=== PATIENT | female | born 1965 | race Caucasian/White ===

== ENCOUNTER → 2018-12-07 | Outpatient (CLI) | payer OTHER ==
--- NOTE | 2018-12-08 09:20 | MM ---
Reason for exam: additional evaluation requested from abnormal screening. Last mammogram was performed 1 month ago. History: Benign cyst aspiration of the right breast, 1999. Physical Findings: Nurse did not find any significant physical abnormalities on exam. MG 3D Diag Mammo W/Cad RT CC and MLO view(s) were taken of the right breast. Prior study comparison: November 13, 2018, mammogram. October 07, 2016, mammogram. The breast tissue is extremely dense which could obscure a lesion on mammography. Benign calcifications in the right breast. Right axillary node appears enlarged however on ultrasound two adjacent nonenlarged nodes are seen in the right axilla. Therefore these appear to overlap on mammogram. ASSESSMENT: Benign, BI-RAD 2 RECOMMENDATION: Routine screening mammogram of both breasts in 1 year.
--- NOTE | 2018-12-08 09:23 | USB ---
Reason for exam: additional evaluation requested from prior study. History: Benign cyst aspiration of the right breast, 1999. US Breast RT Right complete breast ultrasound includes all four quadrants, the retroareolar region and axilla. Finding demonstrates duct prominence at the posterior nipple and two oval lymph nodes at the axilla tail, nonenlarged, no cortical thickening, benign appearing measuring 7 x 7mm and 6 x 7mm. No cystic or solid lesion seen. These results were verbally communicated with the patient and result sheet given to the patient on 12/07/18. ASSESSMENT: Benign, BI-RAD 2 RECOMMENDATION: Routine screening mammogram of both breasts in 1 year.
== END | disposition home or self-care (01) ==
LOC: RADUSWWP 14:49
PROVIDERS: ATTEND Family Medicine
DX: R92.8 Other abnormal and inconclusive findings on diagnostic imaging of breast (principal)
CPT/HCPCS: 77065; 76641; G0279; 77061

== ENCOUNTER → 2020-03-14 | Outpatient (CLI) | payer OTHER ==
--- NOTE | 2020-03-17 14:19 | MM ---
Reason for exam: screening (asymptomatic). Last mammogram was performed 1 year and 3 months ago. History: Benign cyst aspiration of the right breast, 1999. Physical Findings: A clinical breast exam by your physician is recommended on an annual basis and results should be correlated with mammographic findings. MG 3D Screening Mammo W/Cad Bilateral CC and MLO view(s) were taken. Prior study comparison: December 07, 2018, right breast MG 3d diag mammo w/cad RT. November 13, 2018, mammogram. The breast tissue is extremely dense which could obscure a lesion on mammography. There are benign appearing round regional calcifications in the right breast. There is no discrete abnormality. ASSESSMENT: Benign, BI-RAD 2 RECOMMENDATION: Routine screening mammogram of both breasts in 1 year.
== END | disposition home or self-care (01) ==
LOC: RADMAMWWP 09:53
PROVIDERS: ATTEND Family Medicine
DX: Z12.31 Encounter for screening mammogram for malignant neoplasm of breast (principal)
CPT/HCPCS: 77063; 77067

== ENCOUNTER → 2021-05-01 | Outpatient (CLI) | payer OTHER ==
--- NOTE | 2021-05-05 08:10 | MM ---
Reason for exam: screening (asymptomatic). Last mammogram was performed 1 year and 2 months ago. History: Benign cyst aspiration of the right breast, 2000. Took hormonal contraceptives for 2 years. Physical Findings: A clinical breast exam by your physician is recommended on an annual basis and results should be correlated with mammographic findings. MG 3D Screening Mammo W/Cad Bilateral CC and MLO view(s) were taken. Prior study comparison: March 14, 2020, bilateral MG 3d screening mammo w/cad. December 07, 2018, right breast MG 3d diag mammo w/cad RT. November 13, 2018, mammogram. October 07, 2016, mammogram. The breast tissue is heterogeneously dense. This may lower the sensitivity of mammography. Finding: There are changing fine grouped/clustered calcifications in the middle position of the right breast 5cm from the nipple. New finding since March 14, 2020, December 07, 2018, November 13, 2018, and October 07, 2016. ASSESSMENT: Incomplete: need additional imaging evaluation, BI-RAD 0 RECOMMENDATION: Special view mammogram of the right breast. [facility] will attempt to contact patient to return for supplemental views.
== END | disposition home or self-care (01) ==
LOC: RADMAMWWP 13:56
PROVIDERS: ATTEND Internal Medicine
DX: Z12.31 Encounter for screening mammogram for malignant neoplasm of breast (principal)
CPT/HCPCS: 77063; 77067

== ENCOUNTER → 2021-05-07 | Outpatient (CLI) | payer OTHER ==
--- NOTE | 2021-05-08 10:38 | MM ---
Reason for exam: additional evaluation requested from abnormal screening. Last mammogram was performed less than 1 month ago. History: Benign cyst aspiration of the right breast, 1999. Took hormonal contraceptives for 2 years. Physical Findings: Nurse did not find any significant physical abnormalities on exam. MG 3D Work Up W/Cad RT CC with magnification, LM with magnification, and LM view(s) were taken of the right breast. Prior study comparison: May 01, 2021, bilateral MG 3d screening mammo w/cad. March 14, 2020, bilateral MG 3d screening mammo w/cad. December 07, 2018, right breast MG 3d diag mammo w/cad RT. The breast tissue is heterogeneously dense. This may lower the sensitivity of mammography. A few regional and scattered punctate calcifications are noted. One subtle calcifications appears to layer suggesting benign milk of calcium. 6 month follow up. These results were verbally communicated with the patient and result sheet given to the patient on 05/07/21. ASSESSMENT: Probably benign, BI-RAD 3 RECOMMENDATION: Follow-up diagnostic mammogram of the right breast in 6 months.
== END | disposition home or self-care (01) ==
LOC: RADMAMWWP 14:24
PROVIDERS: ATTEND Internal Medicine
DX: R92.1 Mammographic calcification found on diagnostic imaging of breast (principal)
CPT/HCPCS: 77065; G0279; 77061

== ENCOUNTER → 2021-11-16 | Outpatient (CLI) | payer OTHER ==
--- NOTE | 2021-11-16 14:13 | MM ---
Reason for exam: follow-up at short interval from prior study. Last mammogram was performed 6 months ago. History: Benign cyst aspiration of the right breast, 1999. Took hormonal contraceptives for 2 years. Physical Findings: A clinical breast exam by your physician is recommended on an annual basis and results should be correlated with mammographic findings. MG 3D Diag Mammo W/Cad RT CC and MLO view(s) were taken of the right breast. Prior study comparison: May 07, 2021, right breast MG 3d work up w/cad RT. May 01, 2021, bilateral MG 3d screening mammo w/cad. The breast tissue is heterogeneously dense. This may lower the sensitivity of mammography. Stable scattered calcifications without suspicious cluster. ASSESSMENT: Incomplete: need additional imaging evaluation, BI-RAD 0 RECOMMENDATION: Ultrasound of the right breast. (per order) Manage patient on a clinical basis.
--- NOTE | 2021-11-16 14:14 | USB ---
Reason for exam: follow-up at short interval from prior study. History: Benign cyst aspiration of the right breast, 1999. Took hormonal contraceptives for 2 years. Physical Findings: A clinical breast exam by your physician is recommended on an annual basis and results should be correlated with mammographic findings. US Breast RT Right complete breast ultrasound includes all four quadrants, the retroareolar region and axilla. Finding demonstrates duct ectasia. Results were given to the patient verbally at the time of the exam. ASSESSMENT: Benign, BI-RAD 2 RECOMMENDATION: Routine screening mammogram of both breasts in 1 year. Manage patient on a clinical basis.
== END | disposition home or self-care (01) ==
LOC: RADMAMWWP 12:55
PROVIDERS: ATTEND Internal Medicine
DX: N60.41 Mammary duct ectasia of right breast (principal); R92.1 Mammographic calcification found on diagnostic imaging of breast
CPT/HCPCS: 77065; 76641; G0279; 77061

== ENCOUNTER → 2023-05-11 | Outpatient (CLI) | payer OTHER ==
--- NOTE | 2023-05-12 20:35 | MM ---
Reason for Exam: Screening (asymptomatic). Last mammogram was performed 2 year(s) and 1 month(s) ago. Patient History: Menarche at age 17. First Full-Term at age 24. Postmenopausal. Patient has history of breast feeding. Patient used Hormonal Contraceptives for 2 years. 2000, Benign Cyst Aspiration on the right side. Risk Values: Viry 5 year model risk: 1.0%. NCI Lifetime model risk: 6.5%. Prior Study Comparison: 10/07/2016 Screening Mammogram, Unknown. 11/13/2018 Screening Mammogram, Unknown. 12/07/2018 Right Diagnostic Mammogram, [facility]. 03/14/2020 Bilateral Screening Mammogram, [facility]. 05/01/2021 Bilateral Screening Mammogram, [facility]. 05/07/2021 Right Diagnostic Mammogram, [facility]. 11/16/2021 Right Diagnostic Mammogram, [facility]. Tissue Density: The breast tissue is heterogeneously dense. This may lower the sensitivity of mammography. Findings: Analyzed By CAD. Unchanged areas of bilateral asymmetric densities. On the right, posterior laterally on the CC view, subtle grouped calcifications are noted. Otherwise, no significant change. Overall Assessment: Incomplete: need additional imaging evaluation, BI-RAD 0 Management: Special View Mammogram of the right breast. Including 3-D XCCL, mag CC, and 3-D lateral views. If the calcifications are identified on the lateral view, mag lateral will also be recommended. [facility] will attempt to contact patient to return for supplemental views and ultrasound if indicated. Electronically signed and approved by: Marci Fischer M.D. Radiologist
== END | disposition home or self-care (01) ==
LOC: RADMAMWWP 11:18
PROVIDERS: ATTEND Family Medicine
DX: Z12.31 Encounter for screening mammogram for malignant neoplasm of breast (principal); Z78.0 Asymptomatic menopausal state
CPT/HCPCS: 77063; 77067

== ENCOUNTER → 2023-05-16 | Outpatient (CLI) | payer OTHER ==
--- NOTE | 2023-05-16 14:43 | MM ---
Reason for Exam: Additional evaluation requested from abnormal screening. Last screening mammogram was performed less than 1 month ago. Patient History: Menarche at age 17. First Full-Term at age 24. Postmenopausal. Patient has history of breast feeding. Patient used Hormonal Contraceptives for 2 years. 2000, Benign Cyst Aspiration on the right side. Risk Values: Viry 5 year model risk: 1.0%. NCI Lifetime model risk: 6.5%. Prior Study Comparison: 05/07/2021 Right Diagnostic Mammogram, [facility]. 11/16/2021 Right Diagnostic Mammogram, [facility]. 11/16/2021 Right Diagnostic Ultrasound, [facility]. 05/11/2023 Bilateral MG 3D screening mammo w/cad, [facility]. Tissue Density: Right: There are scattered fibroglandular densities. Findings: Analyzed By CAD. Calcification within the right breast posterior depth lateral aspect on CC view are less well appreciated. No new suspicious masses, calcifications or distortions. Overall Assessment: Probably benign, BI-RAD 3 Management: Diagnostic Mammogram of the right breast in 6 months. Short-term follow-up to monitor calcifications seen prior 05/11/2023 and less well appreciated on review on today's exam. Results were given to the patient verbally at the time of exam. Patient should continue monthly self-breast exams. A clinical breast exam by your physician is recommended on an annual basis. This exam should not preclude additional follow-up of suspicious palpable abnormalities. Note on Viry scores and lifetime risk: 1. A Viry score greater than 3% is considered moderate risk. If this is the case, consider specialist referral to assess eligibility for a risk reducing agent. 2. If overall lifetime risk for the development of breast cancer is 20% or higher, the patient may qualify for future screening with alternating mammogram and breast MRI. Electronically signed and approved by: Danny Murrell DO
== END | disposition home or self-care (01) ==
LOC: RADMAMWWP 14:13
PROVIDERS: ATTEND Family Medicine
DX: R92.321 Mammographic fibroglandular density, right breast (principal); Z78.0 Asymptomatic menopausal state
CPT/HCPCS: 77065; G0279; 77061

== ENCOUNTER → 2023-11-30 | Outpatient (CLI) | payer OTHER ==
--- NOTE | 2023-11-30 13:36 | MM ---
Reason for Exam: Follow-up at short interval from prior study. Last screening mammogram was performed 6 month(s) ago. Patient History: Menarche at age 17. First Full-Term at age 24. Postmenopausal. Patient has history of breast feeding. Patient used Hormonal Contraceptives for 2 years. 2000, Benign Cyst Aspiration on the right side. Risk Values: Viry 5 year model risk: 1.0%. NCI Lifetime model risk: 6.5%. Prior Study Comparison: 11/16/2021 Right Diagnostic Mammogram, [facility]. 05/11/2023 Bilateral MG 3D screening mammo w/cad, [facility]. 05/16/2023 Right MG 3D work up w/cad RT, [facility]. Tissue Density: Right: The breasts are heterogeneously dense, which may obscure small masses. Findings: Analyzed By CAD. Scattered benign calcifications are stable. No evidence for mass or distortion. Overall Assessment: Benign, BI-RAD 2 Management: Screening Mammogram of both breasts in 6 months. . Results were given to the patient verbally at the time of exam. Patient should continue monthly self-breast exams. A clinical breast exam by your physician is recommended on an annual basis. This exam should not preclude additional follow-up of suspicious palpable abnormalities. Note on Viry scores and lifetime risk: 1. A Viry score greater than 3% is considered moderate risk. If this is the case, consider specialist referral to assess eligibility for a risk reducing agent. 2. If overall lifetime risk for the development of breast cancer is 20% or higher, the patient may qualify for future screening with alternating mammogram and breast MRI. Electronically signed and approved by: Darren Kolb M.D. Radiologis
== END | disposition home or self-care (01) ==
LOC: RADMAMWWP 12:55
PROVIDERS: ATTEND Family Medicine
DX: R92.331 Mammographic heterogeneous density, right breast (principal); R92.1 Mammographic calcification found on diagnostic imaging of breast; Z78.0 Asymptomatic menopausal state
CPT/HCPCS: 77065; G0279; 77061

== ENCOUNTER → 2024-06-04 | Outpatient (CLI) | payer OTHER ==
--- NOTE | 2024-06-05 10:19 | MM ---
Reason for Exam: Screening (asymptomatic). Last screening mammogram was performed 12 month(s) ago. Patient History: Menarche at age 17. First Full-Term at age 24. Patient has history of breast feeding. Patient used Hormonal Contraceptives for 2 years. 1999, Benign Cyst Aspiration on the right side. Risk Values: Viry 5 year model risk: 1.1%. NCI Lifetime model risk: 6.3%. Prior Study Comparison: 05/11/2023 Bilateral MG 3D screening mammo w/cad, [facility]. 05/16/2023 Right MG 3D work up w/cad RT, [facility]. 11/30/2023 Right MG 3D diag mammo w/cad RT, [facility]. Tissue Density: The breasts are heterogeneously dense, which may obscure small masses. Findings: Analyzed By CAD. Right breast: There is no suspicious group of microcalcifications or new suspicious mass. Left breast: There is no suspicious group of microcalcifications or new suspicious mass. Overall Assessment: Negative, BI-RAD 1 Management: Screening Mammogram of both breasts in [address] [facility] will attempt to contact patient to return for supplemental views and ultrasound if indicated. Patient should continue monthly self-breast exams. A clinical breast exam by your physician is recommended on an annual basis. This exam should not preclude additional follow-up of suspicious palpable abnormalities. Note on Viry scores and lifetime risk: 1. A Viry score greater than 3% is considered moderate risk. If this is the case, consider specialist referral to assess eligibility for a risk reducing agent. 2. If overall lifetime risk for the development of breast cancer is 20% or higher, the patient may qualify for future screening with alternating mammogram and breast MRI. [facility], , 06/05/2024 10:17 AM. Electronically signed and approved by: aDnny Murrell DO
== END | disposition home or self-care (01) ==
LOC: RADMAMWWP 13:58
PROVIDERS: ATTEND Family Medicine
CPT/HCPCS: 77063; 77067